=== PATIENT | female | born 1990 | race Caucasian/White ===

== ENCOUNTER → 2020-03-16 10:17 | Outpatient (BNVA) | payer MEDICAID, SELFPAY | PROVIDERS: Family Provider Physician Assistant Medical; PCP Physician Assistant Medical; Visit Provider Nurse Practitioner Family | DX: R30.9 Painful micturition, unspecified (principal); N30.01 Acute cystitis with hematuria | CPT/HCPCS: 81000; 87086 ==

== ENCOUNTER → 2020-04-07 10:51 | Outpatient (BNVA) | payer MEDICAID, SELFPAY | PROVIDERS: Family Provider Physician Assistant Medical; PCP Physician Assistant Medical; Visit Provider Nurse Practitioner Family | DX: M54.9 Dorsalgia, unspecified (principal); R31.9 Hematuria, unspecified; N39.0 Urinary tract infection, site not specified | CPT/HCPCS: 81000; 87086 ==

== ENCOUNTER → 2020-05-11 09:35 | Outpatient (BNVA) | payer MEDICAID, SELFPAY | PROVIDERS: Family Provider Physician Assistant Medical; PCP Nurse Practitioner Family; Visit Provider Nurse Practitioner Family | DX: N91.2 Amenorrhea, unspecified (principal) | CPT/HCPCS: 81025 ==

== ENCOUNTER → 2020-12-14 10:51 | Outpatient (BNVA) | payer MEDICAID, SELFPAY | PROVIDERS: Family Provider Physician Assistant Medical; PCP Nurse Practitioner Family; Visit Provider Nurse Practitioner Family | DX: N39.0 Urinary tract infection, site not specified (principal); R39.9 Unspecified symptoms and signs involving the genitourinary system; R10.9 Unspecified abdominal pain | CPT/HCPCS: 81000; 87086 ==

== ENCOUNTER → 2024-07-02 11:40 | Outpatient (BNVA) | payer BC, SELFPAY | PROVIDERS: Family Provider Physician Assistant Medical; PCP Nurse Practitioner Family; Visit Provider Registered Nurse | DX: Z00.00 Encounter for general adult medical examination without abnormal findings (principal); Z78.9 Other specified health status | CPT/HCPCS: 82607; 82670; 84144; 84146; 84443; 85025; 87070; 87205; 87624 ==

== ENCOUNTER → 2024-08-12 10:47 | Outpatient (BNVA) | payer BC, SELFPAY | PROVIDERS: PCP Registered Nurse; Visit Provider Registered Nurse | DX: N92.6 Irregular menstruation, unspecified (principal) | CPT/HCPCS: 84146 ==

== ENCOUNTER → 2024-09-02 12:06 | Outpatient (BNVA) | payer BC, SELFPAY | PROVIDERS: PCP Registered Nurse; Referring Provider Registered Nurse; Visit Provider Internal Medicine | DX: R79.89 Other specified abnormal findings of blood chemistry (principal) | CPT/HCPCS: 36415; 82627; 84403 ==

== ENCOUNTER 2024-09-14 15:03 | Outpatient (CLI) | payer BC, SELFPAY ==
--- NOTE | 2024-09-14 15:15 | MR_ITS ---
WS: [id number] MRI HEAD WITHOUT AND WITH GADOLINIUM ENHANCEMENT WITH PITUITARY PROTOCOL. TECHNIQUE: Sagittal T1, T2 axial, T2 axial FLAIR, axial susceptibility weighted imaging, axial diffusion weighted images, and coronal T2 images were obtained. Pre and post-T1 axial and post T1 coronal images. ADC and FSPGR images. Dynamic pituitary protocol utilized. CLINICAL INFORMATION: elevated prolactin level COMPARISON: 2016 FINDINGS: Small hypoenhancing focus in the LEFT anterior pituitary suspicious for microadenoma measuring approximately 3 mm. Otherwise normal enhancing pituitary tissue. No suprasellar lesions. Normal infundibulum. No evidence of restricted diffusion to suggest acute ischemia. No hemosiderin on the susceptibility weighted images. Normal optic chiasm and pituitary infundibulum. Temporal lobes and hippocampal formations are normal in appearance. Paranasal sinuses and mastoid air cells are well aerated. 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
[2024-09-14] MEDS: gadobenate dimeglumine 20 mL vial IV (16:16)
== END 2024-09-14 15:04 | disposition home or self-care (01) ==
PROVIDERS: PCP Registered Nurse; Visit Provider Internal Medicine
DX: R79.89 Other specified abnormal findings of blood chemistry (principal); D35.2 Benign neoplasm of pituitary gland
CPT/HCPCS: 70553

== ENCOUNTER 2024-09-30 09:38 | Emergency (ER) | payer BC, SELFPAY ==
--- OUTSIDE RECORDS SUMMARY | 2024-09-30 09:43 | XMS_ITS | Encounter Summary ---
Author Organization [facility] Address [address] [place] [address] Care Team Providers Care Mixer Runner Name Role Phone Taylor Carl MD Primary Care Provider +1- [phone] Encounter Details Date Type Department Care Team (Latest Contact Info) Description 04/25/2004 Outpatient Historical [facility] Family Medicine [place] [address] [address] Mireille Casillas, HOSPITALITY SPECIALIST [address] [place] [address] STREP SORE THROAT (Primary Dx) Social History Tobacco Use Types Packs/Day Years Used Date Smoking Tobacco: Never Assessed Comments Unknown Sex and Gender Information Value Date Recorded Sex Assigned at Not on file Legal Sex Female 5:03 AM HOMOGENIZER OPERATOR Gender Identity Not on file Sexual Orientation Not on file documented as of this encounter Plan of Treatment Not on file documented as of this encounter Visit Diagnoses Diagnosis Streptococcal sore throat- Primary documented in this encounter Care Teams Mixer Runner Relationship Specialty Start Date End Date Taylor Carl MD [address] [address] PCP - General Family Practice 10/22/16 documented as of this encounter
--- OUTSIDE RECORDS SUMMARY | 2024-09-30 09:43 | XMS_ITS | Encounter Summary ---
Author Organization [facility] Address [address] [place] [address] Care Team Providers Care Grinder Needle Tip Name Role Phone Taylor Carl MD Primary Care Provider +1- [phone] Encounter Details Date Type Department Care Team (Late st Contact Info) Description 08/25/[address] [facility] FY06 Mireille Casillas, REFERRAL COORDINATOR [address] [place] [address] Social History Tobacco Use Types Packs/Day Years Used Date Smoking Tobacco: Never Assessed Comments Unknown Sex and Gender Information Value Date Recorded Sex Assigned at Not on file Legal Sex Female 5:03 AM SPRING PRODUCTION SUPERVISOR Gender Identity Not on file Sexual Orientation Not on file documented as of this encounter Plan of Treatment Not on file documented as of this encounter Visit Diagnoses Not on filedocumented in this encounter Care Teams Grinder Needle Tip Relationship Specialty Start Date End Date Taylor Carl MD [address] [facility] [address] [place] [address] PCP - General Family Practice 10/22/16 documented as of this encounter
--- OUTSIDE RECORDS SUMMARY | 2024-09-30 09:43 | XMS_ITS | Encounter Summary ---
Author Organization [facility] Address [address] [place] [address] Care Team Providers Care Outside Plant Field Engineer Name Role Phone Taylor Carl MD Primary Care Provider +1- [phone] Encounter Details Date Type Department Care Team (Latest Contact Info) Description 06/17/2001 Outpatient Historical [facility] [place] [facility] Family Medicine [address] [address] Mark Ward DO NO ADDRESS ON FILE STREP SORE THROAT (Primary Dx) Social History Tobacco Use Types Packs/Day Years Used Date Smoking Tobacco: Never Assessed Comments Unknown Sex and Gender Information Value Date Recorded Sex Assigned at Not on file Legal Sex Female 5:03 AM IMAGING ASSISTANT Gender Identity Not on file Sexual Orientation Not on file documented as of this encounter Plan of Treatment Not on file documented as of this encounter Visit Diagnoses Diagnosis Streptococcal sore throat- Primary documented in this encounter Care Teams Outside Plant Field Engineer Relationship Specialty Start Date End Date Taylor Carl MD [address] [address] PCP - General Family Practice 10/22/16 documented as of this encounter
--- OUTSIDE RECORDS SUMMARY | 2024-09-30 09:43 | XMS_ITS | Encounter Summary ---
Author Organization [facility] Address [address] [place] [address] Care Team Providers Care Barrel Endshake Adjuster Name Role Phone Taylor Carl MD Primary Care Provider +1- [phone] Encounter Details Date Type Department Care Team (Latest Contact Info) Description 10/06/2004 Outpatient Historical [facility] [address] [place] [address] Mireille Casillas, CHIEF OPERATOR REFORMER [address] [place] [phone] CONSTIPATION NOS (Primary Dx) Social History Tobacco Use Types Packs/Day Years Used Date Smoking Tobacco: Never Assessed Comments Unknown Sex and Gender Information Value Date Recorded Sex Assigned at Not on file Legal Sex Female 5:03 AM DEODORIZER OPERATOR Gender Identity Not on file Sexual Orientation Not on file documented as of this encounter Plan of Treatment Not on file documented as of this encounter Visit Diagnoses Diagnosis Unspecified constipation- Primary documented in this encounter Care Teams Barrel Endshake Adjuster Relationship Specialty Start Date End Date Taylor Carl MD [address] [facility] [place] [address] PCP - General Family Practice 10/22/16 documented as of this encounter
--- OUTSIDE RECORDS SUMMARY | 2024-09-30 09:43 | XMS_ITS | Encounter Summary ---
Author Organization [facility] Address [address] [place] [address] Care Team Providers Care Plumbing Service Technician Name Role Phone Taylor Carl MD Primary Care Provider +1- [phone] Encounter Details Date Type Department Care Team (Latest Contact Info) Description 12/22/2002 Outpatient Historical [facility] Family Medicine [address] [address] Mark Ward DO NO ADDRESS ON FILE ACUTE URI NOS (Primary Dx) Social History Tobacco Use Types Packs/Day Years Used Date Smoking Tobacco: Never Assessed Comments Unknown Sex and Gender Information Value Date Recorded Sex Assigned at Not on file Legal Sex Female 5:03 AM FREIGHT RATE ANALYST Gender Identity Not on file Sexual Orientation Not on file documented as of this encounter Plan of Treatment Not on file documented as of this encounter Visit Diagnoses Diagnosis Acute upper respiratory infections of unspecified site- Primary documented in this encounter Care Teams Plumbing Service Technician Relationship Specialty Start Date End Date Taylor Carl MD [address] [address] PCP - General Family Practice 10/22/16 documented as of this encounter
--- OUTSIDE RECORDS SUMMARY | 2024-09-30 09:43 | XMS_ITS | Clinical Summary ---
Author Organization [facility] Address [address] [place] [address] Care Team Providers Care Twisthand Name Role Phone Taylor Carl MD Primary Care Provider +1- [phone] Allergies Active Allergy Reactions Criticality Noted Date Comments Promethazine Other (See Comments) Low 02/16/2017 Restless legs (extrapyrmidal symptom) Medications acetaminophen (TYLENOL) 500 mg tablet Take 1,000 mg by mouth every 6 hours as needed for Pain, Mild / Temperature . Active aspirin-acetamino phen-caffeine (EXCEDRIN EXTRA STRENGTH) 250-250-65 mg Tablet Take 1 Tablet by mouth every 4 hours as needed for Headaches. Active SUMAtriptan (Imitrex) 50 mg tablet Take 1 Tablet (50 mg) by mouth every 2 hours as needed for Headaches. may repeat in 2 hours; max dose 200mg in 24 hours 6 Tablet 11 10/07/2019 Active pantoprazole (PROTONIX) 40 mg Tablet, Delayed Release (E.C.) Take 1 Tablet (40 mg) by mouth daily. 30 Tablet 3 10/07/2019 Active ketorolac tromethamine (TORADOL) 10 mg tablet Take 1 Tablet (10 mg) by mouth every 8 hours as needed for Pain. 20 Tablet 10/20/2019 Active cyclobenzaprine (FLEXERIL) 10 mg tablet Take 1 Tablet (10 mg) by mouth 3 times daily as needed for Spasm. 60 Tablet 10/20/2019 Active Active Problems Problem Noted Date Diagnosed Date Tobacco use 05/22/2015 Immunizations Immunization Administration Dates Next Due (VARIVAX)(12 MOS UP)VARICELL A VIRUS VACCINE (PF) 0.5 ML, SUB CUT 02/05/2001 Dt Dtp Dtap Vaccine 11/04/2006 Hepatitis B Vaccine 08/29/1995 Family History Medical History Relation Name Comments Heart Disease Brother Cancer Father Hypertension Mother Cancer Sister Relation Name Status Comments Brother Alive Father Alive Mother Alive Sister Alive Social History Tobacco Use Types Packs/Day Years Used Date Smoking Tobacco: Former Cigarettes Smokeless Tobacco: Never Alcohol Use Standard Drinks/Week Comments No 0 (1 standard drink = 0.6 oz pur e alcohol) Comments No Sex and Gender Information Value Date Recorded Sex Assigned at Not on file Legal Sex Female 5:03 AM LOFT WORKER PILE DRIVING Gender Identity Not on file Sexual Orientation Not on file Last Filed Vital Signs Vital Sign Reading Time Taken Comments Blood Pressure 118/68 12/18/2019 10:43 AM LOFT WORKER PILE DRIVING Pulse 88 12/18/2019 10:43 AM LOFT WORKER PILE DRIVING Temperature 36.4 C (97.6 F) 10/20/2019 9:56 AM CDT Respiratory Rate 24 10/20/2019 9:56 AM CDT Oxygen Saturation 97% 10/20/2019 9:56 AM CDT Inhaled Oxygen Concentration - - Weight 80.7 kg (178 lb) 12/18/2019 10:43 AM LOFT WORKER PILE DRIVING Height 165.1 cm (5' 5 ) 12/18/2019 10:43 AM LOFT WORKER PILE DRIVING Body Mass Index 29.62 12/18/2019 10:43 AM LOFT WORKER PILE DRIVING Plan of Treatment Health Maintenance Due Date Last Done Comments HEPATITIS B VACCINES (2 of 3 - 3-dose series) 09/26/1995 08/29/1995 HPV VACCINES (1 - 3-dose series) 08/14/2006 Preventative Visit-Managed Medicaid 08/14/201004/20 HPV/Cotest (21-29) 08/14/2012 DTAP/TDAP/TD VACCINES (2 - Tdap) 11/04/2016 11/05/19 07 CERVICAL CANCER SCREENING 08/14/2021 HPV/Cotest (30-65) 08/14/2021 PAP SMEAR 08/14/2021 INFLUENZA VACCINE (#1) 2024 0, 04/08/2018, 04/08/2018 Insurance [facility] Care Teams Twisthand Relationship Specialty Start Date End Date Taylor Carl MD [address] [phone] PCP - General Family Practice 10/22/16
--- OUTSIDE RECORDS SUMMARY | 2024-09-30 09:43 | XMS_ITS | Encounter Summary ---
Author Organization [facility] Address [address] [place] [address] Care Team Providers Care Nuclear Pharmacist Name Role Phone Taylor Carl MD Primary Care Provider +1- [phone] Encounter Details Date Type Department Care Team (Latest Contact Info) Description 10/23/2002 Outpatient Historical [facility] [address] [place] [address] Mark Ward DO NO ADDRESS ON FILE ACUTE URI NOS (Primary Dx) Social History Tobacco Use Types Packs/Day Years Used Date Smoking Tobacco: Never Assessed Comments Unknown Sex and Gender Information Value Date Recorded Sex Assigned at Not on file Legal Sex Female 5:03 AM METAL BALER Gender Identity Not on file Sexual Orientation Not on file documented as of this encounter Plan of Treatment Not on file documented as of this encounter Visit Diagnoses Diagnosis Acute upper respiratory infections of unspecified site- Primary documented in this encounter Care Teams Nuclear Pharmacist Relationship Specialty Start Date End Date Taylor Carl MD [address] [facility] [address] [place] [address] PCP - General Family Practice 10/22/16 documented as of this encounter
--- OUTSIDE RECORDS SUMMARY | 2024-09-30 09:43 | XMS_ITS | Encounter Summary ---
Author Organization [facility] Address [address] [place] [address] Care Team Providers Care Wash House Worker Name Role Phone Taylor Carl MD Primary Care Provider +1- [phone] Encounter Details Date Type Department Care Team (Latest Contact Info) Description 01/26/2003 Outpatient Historical [facility] Family Medicine [address] [address] Mark Ward DO NO ADDRESS ON FILE ACUTE BRONCHITIS (Primary Dx) Social History Tobacco Use Types Packs/Day Years Used Date Smoking Tobacco: Never Assessed Comments Unknown Sex and Gender Information Value Date Recorded Sex Assigned at Not on file Legal Sex Female 5:03 AM BOBBIN PRESSER Gender Identity Not on file Sexual Orientation Not on file documented as of this encounter Plan of Treatment Not on file documented as of this encounter Visit Diagnoses Diagnosis Acute bronchitis- Primary documented in this encounter Care Teams Wash House Worker Relationship Specialty Start Date End Date Taylor Carl MD [address] [address] PCP - General Family Practice 10/22/16 documented as of this encounter
--- OUTSIDE RECORDS SUMMARY | 2024-09-30 09:43 | XMS_ITS | Encounter Summary ---
Author Organization [facility] Address [address] [place] [address] Care Team Providers Care Supervisor Byproducts Name Role Phone Taylor Carl MD Primary Care Provider +1- [phone] Encounter Details Date Type Department Care Team (Latest Contact Info) Description 06/03/2001 Outpatient Historical [facility] Family Medicine [address] [address] Mark Ward DO NO ADDRESS ON FILE STREP SORE THROAT (Primary Dx) Social History Tobacco Use Types Packs/Day Years Used Date Smoking Tobacco: Never Assessed Comments Unknown Sex and Gender Information Value Date Recorded Sex Assigned at Not on file Legal Sex Female 5:03 AM VEGETABLE LOADER Gender Identity Not on file Sexual Orientation Not on file documented as of this encounter Plan of Treatment Not on file documented as of this encounter Visit Diagnoses Diagnosis Streptococcal sore throat- Primary documented in this encounter Care Teams Supervisor Byproducts Relationship Specialty Start Date End Date Taylor Carl MD [address] [address] PCP - General Family Practice 10/22/16 documented as of this encounter
--- OUTSIDE RECORDS SUMMARY | 2024-09-30 09:43 | XMS_ITS | Encounter Summary ---
Author Organization [facility] Address [address] [place] [address] Care Team Providers Care Financial Services Officer Name Role Phone Jose Mac MD Primary Care Provider +1 -[phone] Encounter Details Date Type Department Care Team (Late st Contact Info) Description 09/29/2024 External Device Data STL ABSTRACTION Provider, Abstract NO ADDRESS ON FILE Social History Tobacco Use Types Packs/Day Years Used Date Smoking Tobacco: Former Cigarettes Smokeless Tobacco: Never Alcohol Use Standard Drinks/Week Comments No 0 (1 standard drink = 0.6 oz pur e alcohol) Comments No Sex and Gender Information Value Date Recorded Sex Assigned at Not on file Legal Sex Female 3:59 PM AUTO BODY ESTIMATOR Gender Identity Not on file Sexual Orientation Not on file documented as of this encounter Plan of Treatment Upcoming Encounters Date Type Department Care Team (Late st Contact Info) Description 10/30/2024 10:45 AM CDT Office Visit [facility] [place] [address] [place] [address] Roselia Concepcion NP [address] [place] [address] documented as of this encounter Visit Diagnoses Not on filedocumented in this encounter Care Teams Financial Services Officer Relationship Specialty Start Date End Date Jose Mac MD [address] [facility] 60 [place] [address] PCP - General Family Practice 04/24/23 documented as of this encounter
--- OUTSIDE RECORDS SUMMARY | 2024-09-30 09:43 | XMS_ITS | Encounter Summary ---
Author Organization [facility] Address [address] [place] [address] Care Team Providers Care Release And Technical Records Clerk Name Role Phone Taylor Carl MD Primary Care Provider +1- [phone] Encounter Details Date Type Department Care Team (Latest Contact Info) Description 03/02/2002 Outpatient Historical [facility] Medicine- [address] [phone] Taco Byrd MD [address] [phone] ACUTE URI NOS (Primary Dx) Social History Tobacco Use Types Packs/Day Years Used Date Smoking Tobacco: Never Assessed Comments Unknown Sex and Gender Information Value Date Recorded Sex Assigned at Not on file Legal Sex Female 5:03 AM NET APPLICATION ARCHITECT Gender Identity Not on file Sexual Orientation Not on file documented as of this encounter Plan of Treatment Not on file documented as of this encounter Visit Diagnoses Diagnosis Acute upper respiratory infections of unspecified site- Primary documented in this encounter Care Teams Release And Technical Records Clerk Relationship Specialty Start Date End Date Taylor Carl MD [address] [phone] PCP - General Family Practice 10/22/16 documented as of this encounter
--- OUTSIDE RECORDS SUMMARY | 2024-09-30 09:43 | XMS_ITS | Encounter Summary ---
Author Organization [facility] Address [address] [place] [address] Care Team Providers Care Disability Advocate Name Role Phone Taylor Carl MD Primary Care Provider +1- [phone] Encounter Details Date Type Department Care Team (Latest Contact Info) Description 08/22/2004 Outpatient Historical [facility] Family Medicine [place] [address] [address] Mireille Casillas, [facility] [address] [place] [address] DIARRHEA NOS (Primary Dx); ABDOMINAL PAIN UNSPEC SITE Social History Tobacco Use Types Packs/Day Years Used Date Smoking Tobacco: Never Assessed Comments Unknown Sex and Gender Information Value Date Recorded Sex Assigned at Not on file Legal Sex Female 5:03 AM TECHNICAL SERVICE REP Gender Identity Not on file Sexual Orientation Not on file documented as of this encounter Plan of Treatment Not on file documented as of this encounter Visit Diagnoses Diagnosis Diarrhea- Primary Abdominal pain, unspecified site documented in this encounter Care Teams Disability Advocate Relationship Specialty Start Date End Date Taylor Carl MD [address] [address] PCP - General Family Practice 10/22/16 documented as of this encounter
--- OUTSIDE RECORDS SUMMARY | 2024-09-30 09:43 | XMS_ITS | Encounter Summary ---
Author Organization [facility] Address [address] [place] [address] Care Team Providers Care Oil Well Service Unit Operator Name Role Phone Taylor Carl MD Primary Care Provider +1- [phone] Encounter Details Date Type Department Care Team (Latest Contact Info) Description 12/04/2001 Outpatient Historical [facility] Family Medicine [address] [address] Linda Briggs MD NO ADDRESS ON FILE STREP SORE THROAT (Primary Dx) Social History Tobacco Use Types Packs/Day Years Used Date Smoking Tobacco: Never Assessed Comments Unknown Sex and Gender Information Value Date Recorded Sex Assigned at Not on file Legal Sex Female 5:03 AM SEMICONDUCTOR WAFERS MARKER Gender Identity Not on file Sexual Orientation Not on file documented as of this encounter Plan of Treatment Not on file documented as of this encounter Visit Diagnoses Diagnosis Streptococcal sore throat- Primary documented in this encounter Care Teams Oil Well Service Unit Operator Relationship Specialty Start Date End Date Taylor Carl MD [address] [phone] PCP - General Family Practice 10/22/16 documented as of this encounter
--- OUTSIDE RECORDS SUMMARY | 2024-09-30 09:43 | XMS_ITS | Encounter Summary ---
Author Organization [facility] Address [address] [place] [address] Care Team Providers Care Stain Remover Name Role Phone Taylor Carl MD Primary Care Provider +1- [phone] Encounter Details Date Type Department Care Team (Latest Contact Info) Description 09/12/2004 Outpatient Historical [facility] Medicine [place] [address] [address] Mireille Casillas, [facility] [address] [place] [address] ESOPHAGEAL REFLUX (Primary Dx); ABDOMINAL PAIN UNSPEC SITE Social History Tobacco Use Types Packs/Day Years Used Date Smoking Tobacco: Never Assessed Comments Unknown Sex and Gender Information Value Date Recorded Sex Assigned at Not on file Legal Sex Female 5:03 AM CONTRACT NEGOTIATOR Gender Identity Not on file Sexual Orientation Not on file documented as of this encounter Plan of Treatment Not on file documented as of this encounter Visit Diagnoses Diagnosis Esophageal reflux- Primary Abdominal pain, unspecified site documented in this encounter Care Teams Stain Remover Relationship Specialty Start Date End Date Taylor Carl MD [address] [address] PCP - General Family Practice 10/22/16 documented as of this encounter
--- OUTSIDE RECORDS SUMMARY | 2024-09-30 09:43 | XMS_ITS | Encounter Summary ---
Author Organization [facility] Address [address] [place] [address] Care Team Providers Care Lube Attendant Name Role Phone Taylor Carl MD Primary Care Provider +1- [phone] Encounter Details Date Type Department Care Team (Latest Contact Info) Description 08/30/2004 Outpatient Historical [facility] [address] [place] [address] Mireille Casillas, TRACK RIDER [address] [place] [address] DIARRHEA NOS (Primary Dx) Social History Tobacco Use Types Packs/Day Years Used Date Smoking Tobacco: Never Assessed Comments Unknown Sex and Gender Information Value Date Recorded Sex Assigned at Not on file Legal Sex Female 5:03 AM SHANK ARCHER Gender Identity Not on file Sexual Orientation Not on file documented as of this encounter Plan of Treatment Not on file documented as of this encounter Visit Diagnoses Diagnosis Diarrhea- Primary documented in this encounter Care Teams Lube Attendant Relationship Specialty Start Date End Date Taylor Carl MD [address] [facility] [address] [place] [phone] PCP - General Family Practice 10/22/16 documented as of this encounter
--- OUTSIDE RECORDS SUMMARY | 2024-09-30 09:43 | XMS_ITS | Encounter Summary ---
Author Organization [facility] Address [address] [place] [address] Care Team Providers Care Glove Cuffer Name Role Phone Taylor Carl MD Primary Care Provider +1- [phone] Encounter Details Date Type Department Care Team (Latest Contact Info) Description 11/18/[address] [facility] Family Medicine [address] [address] Mark Ward DO NO ADDRESS ON FILE STREP SORE THROAT (Primary Dx) Social History Tobacco Use Types Packs/Day Years Used Date Smoking Tobacco: Never Assessed Comments Unknown Sex and Gender Information Value Date Recorded Sex Assigned at Not on file Legal Sex Female 5:03 AM BISCUIT MAKER Gender Identity Not on file Sexual Orientation Not on file documented as of this encounter Plan of Treatment Not on file documented as of this encounter Visit Diagnoses Diagnosis Streptococcal sore throat- Primary documented in this encounter Care Teams Glove Cuffer Relationship Specialty Start Date End Date Taylor Carl MD [address] [address] PCP - General Family Practice 10/22/16 documented as of this encounter
--- OUTSIDE RECORDS SUMMARY | 2024-09-30 09:43 | XMS_ITS | Encounter Summary ---
Author Organization [facility] Address [address] [place] [address] Care Team Providers Care Pbx Wire Chief Name Role Phone Taylor Carl MD Primary Care Provider +1- [phone] Encounter Details Date Type Department Care Team (Latest Contact Info) Description 11/04/2001 Outpatient Historical [facility] Family Medicine [address] [address] Mark Ward DO NO ADDRESS ON FILE STREP SORE THROAT (Primary Dx) Social History Tobacco Use Types Packs/Day Years Used Date Smoking Tobacco: Never Assessed Comments Unknown Sex and Gender Information Value Date Recorded Sex Assigned at Not on file Legal Sex Female 5:03 AM CANE LOADER Gender Identity Not on file Sexual Orientation Not on file documented as of this encounter Plan of Treatment Not on file documented as of this encounter Visit Diagnoses Diagnosis Streptococcal sore throat- Primary documented in this encounter Care Teams Pbx Wire Chief Relationship Specialty Start Date End Date Taylor Carl MD [address] [address] PCP - General Family Practice 10/22/16 documented as of this encounter
--- OUTSIDE RECORDS SUMMARY | 2024-09-30 09:43 | XMS_ITS | Encounter Summary ---
Author Organization [facility] Address [address] [place] [address] Care Team Providers Care Agricultural Crop Farm Manager Name Role Phone Taylor Carl MD Primary Care Provider +1- [phone] Encounter Details Date Type Department Care Team (Latest Contact Info) Description 12/16/2001 Outpatient Historical [facility] Family Medicine [address] [address] Taco Byrd MD [address] [address] ACUTE PHARYNGITIS (Primary Dx) Social History Tobacco Use Types Packs/Day Years Used Date Smoking Tobacco: Never Assessed Comments Unknown Sex and Gender Information Value Date Recorded Sex Assigned at Not on file Legal Sex Female 5:03 AM CHAPTER RELATIONS ADMINISTRATOR Gender Identity Not on file Sexual Orientation Not on file documented as of this encounter Plan of Treatment Not on file documented as of this encounter Visit Diagnoses Diagnosis Acute pharyngitis- Primary documented in this encounter Care Teams Agricultural Crop Farm Manager Relationship Specialty Start Date End Date Taylor Carl MD [address] [address] PCP - General Family Practice 10/22/16 documented as of this encounter
--- OUTSIDE RECORDS SUMMARY | 2024-09-30 09:43 | XMS_ITS | Encounter Summary ---
Author Organization [facility] Address [address] [place] [address] Care Team Providers Care Senior Quality Engineer Name Role Phone Taylor Carl MD Primary Care Provider [phone]- [phone] Encounter Details Date Type Department Care Team (Latest Contact Info) Description 05/06/2001 Outpatient Historical [facility] Family Medicine [address] [address] Mark Ward DO NO ADDRESS ON FILE ACUTE PHARYNGITIS (Primary Dx); Hypertrophy tonsils Social History Tobacco Use Types Packs/Day Years Used Date Smoking Tobacco: Never Assessed Comments Unknown Sex and Gender Information Value Date Recorded Sex Assigned at Not on file Legal Sex Female 5:03 AM COMPLIANCE FIELD TECHNICIAN Gender Identity Not on file Sexual Orientation Not on file documented as of this encounter Plan of Treatment Not on file documented as of this encounter Visit Diagnoses Diagnosis Acute pharyngitis- Primary Hypertrophy tonsils Hypertrophy of tonsils alone documented in this encounter Care Teams Senior Quality Engineer Relationship Specialty Start Date End Date Taylor Carl MD [address] [address] PCP - General Family Practice 10/22/16 documented as of this encounter
--- OUTSIDE RECORDS SUMMARY | 2024-09-30 09:43 | XMS_ITS | Encounter Summary ---
Author Organization [facility] Address [address] [place] [address] Care Team Providers Care Digital Media Designer Name Role Phone Taylor Carl MD Primary Care Provider [phone]- [phone] Encounter Details Date Type Department Care Team (Latest Contact Info) Description 04/08/2003 Outpatient Historical [facility] Medicine [place] [address] [address] Mireille Casillas, CARDIOLOGY MANAGER [address] [place] [address] ACUTE URI NOS (Primary Dx); NONINFEC GASTROENTERIT NEC; STOMACH FUNCTION DIS NEC Social History Tobacco Use Types Packs/Day Years Used Date Smoking Tobacco: Never Assessed Comments Unknown Sex and Gender Information Value Date Recorded Sex Assigned at Not on file Legal Sex Female 5:03 AM ADMINISTRATION VICE PRESIDENT Gender Identity Not on file Sexual Orientation Not on file documented as of this encounter Plan of Treatment Not on file documented as of this encounter Visit Diagnoses Diagnosis Acute upper respiratory infections of unspecified site- Primary Other and unspecified noninfectious gastroenteritis and colitis(558.9) Other and unspecified noninfectious gastroenteritis and colitis Dyspepsia and other specified disorders of function of stomach documented in this encounter Care Teams Digital Media Designer Relationship Specialty Start Date End Date Taylor Carl MD [address] [address] PCP - General Family Practice 10/22/16 documented as of this encounter
--- OUTSIDE RECORDS SUMMARY | 2024-09-30 09:43 | XMS_ITS | Encounter Summary ---
Author Organization [facility] Address [address] [place] [address] Care Team Providers Care Electric Meter Repairer Name Role Phone Taylor Carl MD Primary Care Provider [phone]- [phone] Encounter Details Date Type Department Care Team (Latest Contact Info) Description 05/19/2003 Outpatient Historical [facility] [address] [place] [address] Mireille Casillas, POLICE COMMANDING OFFICER [address] [place] [address] ACUTE PHARYNGITIS (Primary Dx) Social History Tobacco Use Types Packs/Day Years Used Date Smoking Tobacco: Never Assessed Comments Unknown Sex and Gender Information Value Date Recorded Sex Assigned at Not on file Legal Sex Female 5:03 AM SENIOR RESIDENT CARE DIRECTOR Gender Identity Not on file Sexual Orientation Not on file documented as of this encounter Plan of Treatment Not on file documented as of this encounter Visit Diagnoses Diagnosis Acute pharyngitis- Primary documented in this encounter Care Teams Electric Meter Repairer Relationship Specialty Start Date End Date Taylor Carl MD [address] [facility] [address] [place] [address] PCP - General Family Practice 10/22/16 documented as of this encounter
--- OUTSIDE RECORDS SUMMARY | 2024-09-30 09:43 | XMS_ITS | Encounter Summary ---
Author Organization [facility] Address [address] [place] [address] Care Team Providers Care Optical Lens Manufacturing Tech Name Role Phone Taylor Carl MD Primary Care Provider [phone]- [phone] Encounter Details Date Type Department Care Team (Latest Contact Info) Description 04/21/2001 Outpatient Historical [facility] [address] [place] [address] Taco Byrd MD [address] [phone] ACUTE PHARYNGITIS (Primary Dx) Social History Tobacco Use Types Packs/Day Years Used Date Smoking Tobacco: Never Assessed Comments Unknown Sex and Gender Information Value Date Recorded Sex Assigned at Not on file Legal Sex Female 5:03 AM DIET ATTENDANT Gender Identity Not on file Sexual Orientation Not on file documented as of this encounter Plan of Treatment Not on file documented as of this encounter Visit Diagnoses Diagnosis Acute pharyngitis- Primary documented in this encounter Care Teams Optical Lens Manufacturing Tech Relationship Specialty Start Date End Date Taylor Carl MD [address] [phone] PCP - General Family Practice 10/22/16 documented as of this encounter
--- OUTSIDE RECORDS SUMMARY | 2024-09-30 09:43 | XMS_ITS | Encounter Summary ---
Author Organization [facility] Address [address] [place] [address] Care Team Providers Care Database Manager Name Role Phone Taylor Carl MD Primary Care Provider [phone]- [phone] Encounter Details Date Type Department Care Team (Latest Contact Info) Description 05/22/2002 Outpatient Historical [facility] [place] [address] [place] [address] Mark Ward DO NO ADDRESS ON FILE ACUTE PHARYNGITIS (Primary Dx) Social History Tobacco Use Types Packs/Day Years Used Date Smoking Tobacco: Never Assessed Comments Unknown Sex and Gender Information Value Date Recorded Sex Assigned at Not on file Legal Sex Female 5:03 AM EQUITIES ANALYST Gender Identity Not on file Sexual Orientation Not on file documented as of this encounter Plan of Treatment Not on file documented as of this encounter Visit Diagnoses Diagnosis Acute pharyngitis- Primary documented in this encounter Care Teams Database Manager Relationship Specialty Start Date End Date Taylor Carl MD [address] [address] PCP - General Family Practice 10/22/16 documented as of this encounter
--- OUTSIDE RECORDS SUMMARY | 2024-09-30 09:43 | XMS_ITS | Encounter Summary ---
Author Organization [facility] Address [address] [place] [address] Care Team Providers Care Battery Hand Name Role Phone Taylor Carl MD Primary Care Provider [phone]- [phone] Encounter Details Date Type Department Care Team (Latest Contact Info) Description 03/16/2004 Outpatient Historical [facility] Medicine [place] [address] [address] Mireille Casillas, FREEZER WORKER [address] [place] [address] ACUTE URI NOS (Primary Dx); ACUTE SINUSITIS NOS Social History Tobacco Use Types Packs/Day Years Used Date Smoking Tobacco: Never Assessed Comments Unknown Sex and Gender Information Value Date Recorded Sex Assigned at Not on file Legal Sex Female 5:03 AM MANAGER FIELD SALES Gender Identity Not on file Sexual Orientation Not on file documented as of this encounter Plan of Treatment Not on file documented as of this encounter Visit Diagnoses Diagnosis Acute upper respiratory infections of unspecified site- Primary Acute sinusitis, unspecified documented in this encounter Care Teams Battery Hand Relationship Specialty Start Date End Date Taylor Carl MD [address] [address] PCP - General Family Practice 10/22/16 documented as of this encounter
--- OUTSIDE RECORDS SUMMARY | 2024-09-30 09:43 | XMS_ITS | Clinical Summary ---
Author Organization [facility] Address [address] Echols: Epic Prelude ADT [place]AN GOMEZ [address] Care Team Providers Care Rock Worker Name Role Phone Jose Mac MD Primary Care Provider +1 -[phone] Allergies No known active allergies Medications aspirin-acetaminoph en-caffeine (EXCEDRIN EXTRA STRENGTH) 250-250-65 mg Tablet Take 1 Tablet by mouth every 4 hours as needed for Headaches. 10/07/19 Active acetaminophen (TYLENOL) 500 mg tablet Take 1,000 mg by mouth every 6 hours as needed. Active SUMAtriptan (IMITREX) 50 mg tablet Take 50 mg by mouth every 2 hours as needed. 10/07/19 20 Active acetaminophen (TYLENOL) 500 mg tablet Take 1,000 mg by mouth every 6 hours as needed for Pain, Mild / Temperature. 11/01/19 Active hyoscyamine 0.125 mg sublingual tabletIndications:V iral gastroenteritis Place 1 Tablet (0.125 mg) under tongue every 4 hours as needed for Spasm. 20 Tablet 01/30/20 Active Additional Information Patient not taking.Reported on 04/30/2023 ondansetron (ZOFRAN ODT) 4 mg Tablet, Rapid DissolveIndications :Viral gastroenteritis Take 1 Tablet (4 mg) by mouth every 6 hours as needed for Nausea/Emesis. Dissolve tablet on top of tongue, then swallow with saliva. 20 Tablet 01/30/20 Active Additional Information Patient not taking.Reported on 04/30/2023 fluticasone propionate (FLONASE) 50 mcg/spray [place], Suspension nasal inhalerIndications: Left otitis media with effusion Administer 2 Sprays in each nostril daily. 16 Gram 2 04/30/19 24 Active loratadine (CLARITIN) 10 mg tabletIndications:L eft otitis media with effusion Take 1 Tablet (10 mg) by mouth daily. 90 Tablet 1 04/30/19 24 Active pantoprazole (PROTONIX) 40 mg Tablet, Delayed Release (E.C.) TAKE 1 TABLET(40 MG) BY MOUTH DAILY 30 Tablet 08/21/19 24 Active busPIRone (BUSPAR) 5 mg tablet 09/08/19 25 Active famotidine (PEPCID) 20 mg tabletIndications:C ellulitis of mouth Take 1 Tablet (20 mg) by mouth 2 times daily for 7 days. 14 Tablet 09/12/19 25 025 cetirizine (ZyrTEC) 10 mg tabletIndications:C ellulitis of mouth Take 1 Tablet (10 mg) by mouth 2 times daily for 7 days. 14 Tablet 09/12/19 25 025 cephALEXin (KEFLEX) 500 mg capsuleIndications: Cellulitis of mouth Take 1 Capsule (500 mg) by mouth 3 times daily for 7 days. 21 Capsule 09/12/19 25 025 Hospital, Clinic, or Other Facility Administered Medication Ordered Dose Route Frequency Start Date End Date Status dexAMETHasone (DECADRON) injection 8 mgIndications:Celluliti s of mouth 8 mg IM ONE TIME ONLY 09/11/2024 09/11/2024 Ended Active Problems Problem Noted Date Diagnosed Date Tobacco use 05/22/2015 Encounters Date Type Department Care Team Description 09/29/2024 External Device Data STL ABSTRACTION Provider, Abstract 09/16/2024 External Device Data STL ABSTRACTION Provider, Abstract 09/15/2024 External Device Data ST[facility] ABSTRACTION Provider, Abstract 09/11/2024 11:00 AM CDT Office Visit [facility] [address] [address] Yulia Sanford FNP Cellulitis of mouth (Primary Dx) 08/26/2024 External Device Data STL ABSTRACTION Provider, Abstract 08/26/2024 External Device Data STL ABSTRACTION Provider, Abstract 08/11/2024 External Device Data ST[place] ABSTRACTION Provider, Abstract 08/11/2024 External Device Data ST[facility] ABSTRACTION Provider, Abstract 08/11/2024 External Device Data STL ABSTRACTION Provider, Abstract from Last 3 Months Immunizations Immunization Administration Dates Next Due (VARIVAX)(12 [...] Smoking Tobacco: Former Cigarettes Smokeless Tobacco: Never Tobacco Cessation:Counseling Given: No Alcohol Use Standard Drinks/Week Comments No 0 (1 standard drink = 0.6 oz pur e alcohol) Comments No Sex and Gender Information Value Date Recorded Sex Assigned at Not on file Legal Sex Female 3:59 PM BRANDING MACHINE TENDER Gender Identity Not on file Sexual Orientation Not on file Last Filed Vital Signs Vital Sign Reading Time Taken Comments Blood Pressure 110/70 09/11/2024 8:31 AM CDT Pulse 105 09/11/2024 8:31 AM CDT Temperature 36.7 C (98 F) 09/11/2024 8:31 AM CDT Respiratory Rate 20 09/11/2024 8:31 AM CDT Oxygen Saturation 98% 09/11/2024 8:31 AM CDT Inhaled Oxygen Concentration - - Weight 91.4 kg (201 lb 9.6 oz) 09/11/2024 8:31 A M CDT Height 162.6 cm (5' 4 ) 09/11/2024 8:31 AM CDT Body Mass Index 34.6 09/11/2024 8:31 AM CDT Plan of Treatment Upcoming Encounters Date Type Department Care Team (Late st Contact Info) Description 10/30/2024 10:45 AM CDT Office Visit [facility] Meredith Guevara [address] [place] [address] Roselia Concepcion NP [address] [place] [address] Health Maintenance Due Date Last Done Comments HEPATITIS B VACCINES (2 of 3 - 3-dose series) 09/26/1995 08/29/1995 HPV VACCINES (1 - 3-dose series) 08/14/2006 HPV/Cotest (21-29) 08/14/2012 DTAP/TDAP/TD VACCINES (2 - Tdap) 11/04/2016 11/05/19 07 CERVICAL CANCER SCREENING 08/14/2021 HPV/Cotest (30-65) 08/14/2021 PAP SMEAR 08/14/2021 Preventative Visit- Commercial 02/12/2024 INFLUENZA VACCINE (#1) 2024 3, 01/24/2022, 01/24/2022, Additional history exists Insurance [place] Member Subscriber Plan / Payer (Ef fective 2023-Present) Name:Shelly Morales Relation to Subscriber:Self Name:Shelly Morales Payer ID:Not on file Group ID:Not on file Type:Medicaid Address: [address] OUT OF STATE Care Teams Rock Worker Relationship Specialty Start Date End Date Jose Mac MD [address] [phone] PCP - General Family Practice 04/24/23
--- OUTSIDE RECORDS SUMMARY | 2024-09-30 09:43 | XMS_ITS | Encounter Summary ---
Author Organization [facility] Address [address] [place] [address] Care Team Providers Care Chief Nurse Anesthetist Name Role Phone Taylor Carl MD Primary Care Provider +1- [phone] Encounter Details Date Type Department Care Team (Latest Contact Info) Description 12/04/2004 Outpatient Historical [facility] [address] [place] [address] Mireille Casillas, COMBINATION MACHINE TOOL OPERATOR [address] [place] [address] ACUTE PHARYNGITIS (Primary Dx) Social History Tobacco Use Types Packs/Day Years Used Date Smoking Tobacco: Never Assessed Comments Unknown Sex and Gender Information Value Date Recorded Sex Assigned at Not on file Legal Sex Female 5:03 AM MACARONI MAKER Gender Identity Not on file Sexual Orientation Not on file documented as of this encounter Plan of Treatment Not on file documented as of this encounter Visit Diagnoses Diagnosis Acute pharyngitis- Primary documented in this encounter Care Teams Chief Nurse Anesthetist Relationship Specialty Start Date End Date Taylor Carl MD [address] [facility] [address] [place] [address] PCP - General Family Practice 10/22/16 documented as of this encounter
--- OUTSIDE RECORDS SUMMARY | 2024-09-30 09:43 | XMS_ITS | Encounter Summary ---
Author Organization [facility] Address [address] [place] [address] Care Team Providers Care Formulation Scientist Name Role Phone Taylor Carl MD Primary Care Provider +1- [phone] Encounter Details Date Type Department Care Team (Latest Contact Info) Description 11/17/[address] [facility] Family Medicine- [address] [place] [address] Mark Ward, NO ADDRESS ON FILE NONINFEC GASTROENTERIT NEC (Primary Dx) Social History Tobacco Use Types Packs/Day Years Used Date Smoking Tobacco: Never Assessed Comments Unknown Sex and Gender Information Value Date Recorded Sex Assigned at Not on file Legal Sex Female 5:03 AM MUSIC ARRANGER Gender Identity Not on file Sexual Orientation Not on file documented as of this encounter Plan of Treatment Not on file documented as of this encounter Visit Diagnoses Diagnosis Other and unspecified noninfectious gastroenteritis and colitis(558.9)- Primary Other and unspecified noninfectious gastroenteritis and colitis documented in this encounter Care Teams Formulation Scientist Relationship Specialty Start Date End Date Taylor Carl MD [address] [facility] [address] [place] [phone] PCP - General Family Practice 10/22/16 documented as of this encounter
--- OUTSIDE RECORDS SUMMARY | 2024-09-30 09:43 | XMS_ITS | Encounter Summary ---
Author Organization [facility] Address [address] [place] [address] Care Team Providers Care Investor Relations Analyst Name Role Phone Taylor Carl MD Primary Care Provider +1- [phone] Encounter Details Date Type Department Care Team (Latest Contact Info) Description 01/13/2003 Outpatient Historical [facility] [address] [place] [address] Taco Byrd MD [address] [facility] [address] [place] [address] DERMATITIS OTHER NEC (Primary Dx) Social History Tobacco Use Types Packs/Day Years Used Date Smoking Tobacco: Never Assessed Comments Unknown Sex and Gender Information Value Date Recorded Sex Assigned at Not on file Legal Sex Female 5:03 AM INSPECTOR EXPERIMENTAL ASSEMBLY Gender Identity Not on file Sexual Orientation Not on file documented as of this encounter Plan of Treatment Not on file documented as of this encounter Visit Diagnoses Diagnosis Contact dermatitis and other eczema due to other specified agent- Primary documented in this encounter Care Teams Investor Relations Analyst Relationship Specialty Start Date End Date Taylor Carl MD [address] [phone] PCP - General Family Practice 10/22/16 documented as of this encounter
--- NOTE | 2024-09-30 09:51 | ECG_ITS ---
[facility]24[facility]30 Pat Name: Shelly Morales Department: Room: Gender: Female Discharge Rn: : 1990 Requested By: Gloria Garcia Order Number: [id number] Shaq MD: Cruz Nava M.D. Measurements Intervals Davis Rate: 116 P: 49 CA: 155 QRS: 62 QRSD: 89 T: 50 QT: 335 QTc: 467 Interpretive Statements SINUS TACHYCARDIA NONSPECIFIC T-WAVE ABNORMALITY No previous ECG available for comparison Electronically Signed On 10-03-2024 08:53:20 CDT by Cruz Nava M.D. [email or web address]
[2024-09-30 10:00] VITALS: BP 104/64; PULSE 116; RESP 18; TEMP 36.7; O2SAT 98
[2024-09-30 10:33] VITALS: BP 110/86; PULSE 105
--- NOTE | 2024-09-30 10:48 | ED_ITS ---
HPI - Arrhythmia/Palpitations 2 General: Chief Complaint: Arrhythmia/Palpitations Stated Complaint: high heart rate new meds Time Seen by Provider: 09/30/24 10:21 Source: patient Mode of arrival: ambulatory Limitations: no limitations History of Present Illness: 34-year-old female who states that she h as a history of a pituitary adenoma she states that she had recently been started on cabergoline for an elevated prolactin level. She states she took her first dose Saturday second dose yesterday states since then she has been having high heart rates headaches along with fevers. For an elevated prolactin level. States she took her first dose Saturday second dose yesterday states since then she has been having high heart rates headaches along with fevers. States she feels like her chest has been pounding and having some shortness of breath. She denies any cough she denies any vomiting denies any dysuria. Denies any neck stiffness states she has had some nasal congestion Associated symptoms: Deny nausea or vomiting Related Data Previous Rx's ?Medication ?Instructions ?Recorded buspirone 5 mg tablet See Rx Instructions .Route 0 09/07/24 .COMPLEX #30 tabs cabergoline 0.5 mg tablet See Rx Instructions PO .COMP DIONICIO 09/17/24 #20 tabs cephalexin 500 mg capsule 500 mg PO TID 7 days #21 cap s 09/30/24 Allergies Allergy/AdvReac Type Severity Reaction Status Date / Time No Known Allergies Allergy Verified 09/02/24 11:36 Review of Systems 2 Const: Reports: fever(s); Denies: chills, body aches or change in appetite ENMT: Denies: throat pain or dental pain Card: Reports: chest pain Resp: Denies: dyspnea GI: Denies: abdominal pain, nausea, vomiting or diarrhea Musc: Denies: neck pain or back pain Skin/Breast: Denies: rash Neuro: Reports: headache(s) PFSH ED 2 PFSH: Medical History Elevated prolactin level Family History Mother Hypertension Father Colon cancer, Onset Age: 44 Diabetes mellitus, type 2 Stroke Social History Smoking and tobacco/nicotine status: former use of tobacco/nicotine Quit status (tobacco/nicotine): has quit using Year quit tobacco: 10/2023 Alcohol intake: never Substance/Drug Use: never Adopted: No Caregiver/support person: No Lives independently: No Household members: spouse and children Marital status: service: No Current occupational status: employed Sexually active: Yes Do you think of yourself as: Straight/Heterosexual Current gender identity: Female Physical Exam 2 Const: COMMON NORMALS: no acute distress, patient oriented x3 and healthy appearing HENMT: COMMON NORMALS: normocephalic and atraumatic HEAD & SCALP: n ormocephalic and atraumatic Eye: COMMON NORMALS: conjunctivae normal CONJUNCTIVA: Yes conjunctivae normal Neck/C-Spine: COMMON NORMALS: full ROM, supple and no meningeal signs Chest: COMMONS NORMALS: normal inspection of the chest and normal palpation of entire chest wall Resp: COMMON NORMALS: normal respiratory effort, No retractions, No use of accessory muscles and clear to auscultation bilaterally AUSCULTATION: clear to auscultation bilaterally Cardio: COMMON NORMALS: regular rhythm and No murmurs present (Cardio) R ATE: tachycardic RHYTHM: regular rhythm GI: COMMON NORMALS: Normal to inspection, nondistended, normoactive bowel sounds present, Soft to palpation, non-tender and no masses PALPATION: Yes Soft to palpation Extremity: COMMON NORMALS: normal to inspection and full ROM Neuro: COMMON NORMALS: patient oriented x3, moves all extremities and no focal motor deficits MENINGEAL SIGNS: Yes no meningeal signs Psych: COMMON NORMALS: mental status grossly normal, Normal thought process present and cooperative THOUGHT PROCESS: Normal thought process present Skin: COMMON NORMALS: no rashes or lesions noted and no wounds GENERAL SKIN EXAM: no rashes or lesions noted Course 2 Vital Signs: Vital signs: Vital Signs Temperature 98.0 F 09/30/24 10:00 Pulse Rate 114 H 09/30/24 12:02 Respiratory Rate 18 09/30/24 12:02 Blood Pressure 103/77 09/30/24 12:02 Pulse Oximetry 99 09/30/24 12:02 Oxygen Delivery Me thod Room Air 09/30/24 12:02 MDM - Arrhythmia/Palpitations Medical Decision Making Patient presents here with palpitations is likely from her medication blood work here is all normal no signs of pulmonary embolism white count lactate is normal she has had some slight upper respiratory infection symptoms we will start her on antibiotics she does not appear septic heart rate has improved here after fluids I 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 Medical Records I reviewed the patient's medical records. Lab Data I reviewed the patient's lab results. 09/30/24 10:36 09/30/24 10:36 Laboratory Results WBC 3.38 10^3/uL (3.29-11.43) 09/30/24 10:36 RBC 4.21 10^6/uL (3.85-5.65) 09/30/24 10:36 Hgb 12.90 g/dL (11.27-16.99) 09/30/24 10:36 Hct 37.9 % (36-47) 09/30/24 10:36 MCV 90.0 fl (85-98) 09/30/24 10:36 MCH 30.6 pg (27-33) 09/30/24 10:36 MCHC 34.0 g/dL (30-55) 09/30/24 10:36 RDW 12.3 % (12.1-15.1) 09/30/24 10:36 Plt Count 194 10^3/cmm (157-399) 09/30/24 10:36 MPV 9.3 fL (7.4-10.4) 09/30/24 10:36 Neut % (Auto) 72.7 % 09/30/24 10:36 Lymph % (Auto) 16.9 % 09/30/24 10:36 Park % (Auto) 10.1 % 09/30/24 10:36 Eos % (Auto) 0.0 % 09/30/24 10:36 Baso % (Auto) 0.3 % 09/30/24 10:36 Neut # (Auto) 2.46 10^3/uL (1.8-7.7) 09/30/24 10:36 Lymph # (Auto) 0.6 10^3/uL (0.8-4.8) L 09/30/24 10:36 Park # (Auto) 0.3 10^3/uL (0.2-0.9) 09/30/24 10:36 Eos # (Auto) 0.0 10^3/uL (0.0-0.8) 09/30/24 10:36 Baso # (Auto) 0.0 10^3/uL (0.0-0.1) 09/30/24 10:36 Nucleated RBC % (auto) 0 % 09/30/24 10:36 Nucleated RBCs # 0.0 /100WBC 09/30/24 10:36 D-Dimer 0.43 ug/mLFEU (0-0.59) 09/30/24 10:36 Sodium 138 mmol/L (136-145) 09/30/24 10:36 Potassium 3.5 mmol/L (3.5-5.1) 09/30/24 10:36 Chloride 102 mmol/L (98-107) 09/30/24 10:36 Carbon Dioxide 24 mmol/L (22-29) 09/30/24 10:36 Anion Gap 15.5 (5-19) 09/30/24 10:36 BUN 9 mg/dL (6-20) 09/30/24 10:36 Creatinine 0.7 mg/dL (0.5-0.9) 09/30/24 10:36 GFR Calculation 96.4 mL/min (90-130) 09/30/24 10:36 Glucose 120 mg/dL (65-115) H 09/30/24 10:36 Calculated Osmolality 286 mOsm/kg (285-295) 09/30/24 10:36 Lactic Acid 1.7 mmol/L (0.5-2.2) 09/30/24 10:30 Calcium 9.0 mg/dL (8.5-10.5) 09/30/24 10:36 Total Bilirubin 1.1 mg/dL (0.15-1.2) 09/30/24 10:36 AST 11 U/L (0-32) 09/30/24 10:36 ALT 10 U/L (0-33) 09/30/24 10:36 Alkaline Phosphatase 64 U/L (35-105) 09/30/24 10:36 Troponin T Baseline < 6 ng/L (0-10) 09/30/24 10:36 Total Protein 6.9 g/dL (6.6-8.7) 09/30/24 10:36 Albumin 4.2 g/dL (3.5-5.2) 09/30/24 10:36 Globulin 2.7 g/dL (1.3-4.6) 09/30/24 10:36 TSH 0.30 uIU/mL (0.27-4.20) 09/30/24 10:36 HCG, Qual Negative (Negative) 09/30/24 10:36 All radiology interpretation(s) finalized by discharge EKG Data EKG 1: I personally reviewed and interpreted this EKG as follows: EKG interpretation date: 09/30/24 EKG interpretation time: 09:59 Interpretation: sinus tach hr [address] elevation qrs 89 qtc 404 Discharge Plan Discharge Patient Disposition: Home Clinical Impression: Palpitations, Medication reaction, Upper respiratory infection Condition: Stable Prescriptions: New cephalexin 500 mg capsule 500 mg PO TID 7 Days Qty: 21 0RF No Action buspirone 5 mg tablet See Rx Instructions .ROUTE .COMPLEX Qty: 30 0RF Dose Instruction: TAKE 1 TABLET BY MOUTH ONCE DAILY NEEDED FOR 30 DAYS Rx Instructions: TAKE 1 TABLET BY MOUTH ONCE DAILY NEEDED FOR 30 DAYS cabergoline 0.5 mg tablet See Rx Instructions PO .COMPLEX Qty: 20 0RF Rx Instructions: take 0.25mg twice a week orally; Discharge Orders: Discharge ED (Routine); Ordered 09/30/24 Ordered By: Gloria Garcia Referrals: Christian Kurtz FNP [Primary Care Provider, Family Practice] Lonnie Hector MD [Physician, Endocrinology] - 4-7 days Discharge Diet: Advance as tolerated Discharge Activity: Resume usual activity Patient Instructions: Heart Palpitations (ED), Upper Respiratory Infection (ED) Print Language: Afghan Coding Level of Care Code ED Personal Care Worker for Sharon Munoz
[2024-09-30 10:53] LABS: Hematocrit 37.9 % (36-47); Hemoglobin 12.90 g/dL (11.27-16.99); Mean Corpuscular HGB Conc 34.0 g/dL (30-55); Mean Corpuscular Hemoglobin 30.6 pg (27-33); Mean Corpuscular Volume 90.0 fl (85-98); Nucleated Red Blood Cells % 0 %; Platelet Count 194 10^3/cmm (157-399); Red Blood Count 4.21 10^6/uL (3.85-5.65); White Blood Count 3.38 10^3/uL (3.29-11.43)
[2024-09-30 11:12] LABS: Troponin(5th) Baseline < 6 ng/L (0-10)
[2024-09-30 11:20] LABS: HCG, Serum Qual Negative (Negative)
[2024-09-30 11:29] LABS: Alanine Aminotransferase 10 U/L (0-33); Albumin Level 4.2 g/dL (3.5-5.2); Alkaline Phosphatase 64 U/L (35-105); Anion Gap 15.5 (5-19); Aspartate Amino Transferase 11 U/L (0-32); Blood Urea Nitrogen 9 mg/dL (6-20); Calcium 9.0 mg/dL (8.5-10.5); Carbon Dioxide 24 mmol/L (22-29); Chloride 102 mmol/L (98-107); Creatinine Clr Calc Pharmacy 124.7083; Globulin 2.7 g/dL (1.3-4.6); Glucose 120 mg/dL (65-115); Osmolality Calculated 286 mOsm/kg (285-295); Potassium 3.5 mmol/L (3.5-5.1); Sodium 138 mmol/L (136-145); Thyroid Stimulating Hormone 0.30 uIU/mL (0.27-4.20); Total Protein 6.9 g/dL (6.6-8.7)
--- NOTE | 2024-09-30 11:31 | XRR_ITS ---
PROCEDURE INFORMATION: Exam: XR Chest Exam date and time: 09/30/2024 11:35 AM Age: 34 years old Clinical indication: Pain; Angina pectoris; Additional info: Cp. No history of recent trauma or surgery is provided. TECHNIQUE: Imaging protocol: Radiologic exam of the chest. 1image(s) are provided. Views: 1 view. COMPARISON: No relevant prior chest radiograph studies available. Lung base report 02/01/2010. FINDINGS: Lungs: No lobar consolidation is appreciated. Pleural spaces: No pneumothorax or significant pleural effusion is appreciated. Heart/Mediastinum: The cardiomediastinal silhouette is within normal for size.No cardiac decompensation is appreciated. There does appear to be some density centrally midline which could also be seen with processes including vascular averaging as well as hiatal hernia averaging. Diaphragm: The hemidiaphragms are symmetric. Bones/joints: No displaced fracture or dislocation is appreciated. Soft tissues: No radiopaque foreign body or subcutaneous emphysema is appreciated. There is some overlying external, clothing artifact. XR/XR chest 1V portable [id number] IMPRESSION: No lobar consolidation is appreciated.No acute cardiopulmonary changes are appreciated.
[2024-09-30 11:52] VITALS: BP 99/68; PULSE 109; RESP 16; O2SAT 99
[2024-09-30 12:02] VITALS: BP 103/77; PULSE 114; RESP 18; O2SAT 99
[2024-09-30 12:25] LABS: Lactic Sepsis W/Reflex 1.7 mmol/L (0.5-2.2)
--- NOTE | 2024-09-30 12:26 | ECG_ITS ---
[facility] Test Date: 2024-09-30 Pat Name: Shelly Morales Department: Room: Gender: Female Rouge Miller: : 1990 Requested By: Gloria Garcia Order Number: [id number] Shaq MD: Cruz Nava M.D. Measurements Intervals [place] Rate: 107 P: 53 WV: 198 QRS: 63 QRSD: 78 T: 61 QT: 330 QTc: 441 Interpretive Statements SINUS TACHYCARDIA Compared to ECG 09/30/2024 09:59:19 T-wave abnormality no longer present Electronically Signed On 10-03-2024 09:44:46 CDT by Cruz Nava M.D. [id number]
[2024-09-30 12:31] VITALS: PULSE 107; RESP 17; O2SAT 95
[2024-09-30 13:04] VITALS: BP 125/64; PULSE 112; RESP 18; O2SAT 97
== END 2024-09-30 13:05 | disposition home or self-care (01) ==
PROVIDERS: Emergency Provider Emergency Medicine; PCP Registered Nurse
DX: R00.2 Palpitations (principal); J06.9 Acute upper respiratory infection, unspecified; T50.905A Adverse effect of unspecified drugs, medicaments and biological substances, initial encounter; X58.XXXA Exposure to other specified factors, initial encounter; Z87.891 Personal history of nicotine dependence
CPT/HCPCS: 36415; 71045; 80053; 83605; 84443; 84484; 84703; 85025; 85378; 93005; 96361; 96374; 99285; J1885; J7030